=== PATIENT | female | born 1970 ===

== ENCOUNTER → 2017-10-24 | Outpatient (CLI) | payer OTHER | END | disposition home or self-care (01) | LOC: CFH 09:53 | PROVIDERS: ATTEND Surgery | DX: Z01.818 Encounter for other preprocedural examination (principal); N92.0 Excessive and frequent menstruation with regular cycle; E66.01 Morbid (severe) obesity due to excess calories | CPT/HCPCS: 74241; 76830 ==

== ENCOUNTER 2017-12-11 08:18 | Inpatient (IN) | payer OTHER ==
[~2017-12-11] VITALS: Ht 165.1 cm; Wt 108.0 kg
[~2017-12-11 08:18] MED LIST: GLIP5TAB10 PO; HYDR25TA6 PO; LEVO137T3 PO; SUGAMMADEX 200 MG/2 ML IVPush ONE
[2017-12-11] MEDS ORDERED: LACTATED RINGERS 1,000 ML IV SCH (14:30)
[2017-12-11] MEDS ORDERED: ONDANSETRON ODT 8 MG PO ONE (15:00)
[2017-12-11] MEDS ORDERED: SCOPOLAMINE PATCH, 1.5MG PATCH.TD72 TD ONE (15:00)
[2017-12-11] MEDS ORDERED: OxyconTIN ER 20 MG TAB.ER PO ONE (15:00)
[2017-12-11] MEDS ORDERED: ACETAMINOPHEN 500 MG TABLET PO ONE (15:00)
[2017-12-11] MEDS ORDERED: GABAPENTIN 300 MG CAPSULE PO ONE (15:00)
[2017-12-11] MEDS ORDERED: BUPIVACAINE/PF 0.5% ONE (15:46)
[2017-12-11] MEDS ORDERED: EPINEPHRINE 1 MG/ML, 1ML ONE (15:46)
[2017-12-11] MEDS ORDERED: FENTANYL PF 250 MCG/5ML ONE (15:50)
[2017-12-11] MEDS ORDERED: MIDAZOLAM 1 MG/ML, 2ML ONE (15:50)
[2017-12-11] MEDS ORDERED: PROPOFOL 10 MG/ML, 20ML ONE (15:51)
[2017-12-11] MEDS ORDERED: NEOSTIGMINE 1 MG/ML, 10ML ONE (15:52)
[2017-12-11] MEDS ORDERED: ROCURONIUM 10MG/ML,5ML ONE (15:52)
[2017-12-11] MEDS ORDERED: WATER-INJECTION,STERILE 10 ML IV ONE (15:53)
[2017-12-11] MEDS ORDERED: GLYCOPYRROLATE 0.4 MG/2 ML, 2ML ONE ×2 (15:53→17:41)
[2017-12-11] MEDS ORDERED: CEFAZOLIN 1,000 MG ONE ×2 (15:53)
[2017-12-11] MEDS ORDERED: DEXAMETHASONE 4 MG/ML, 1ML ONE ×2 (15:56)
[2017-12-11] MEDS ORDERED: FENTANYL PF 100 MCG/2ML IV PRN (16:30)
[2017-12-11] MEDS ORDERED: ONDANSETRON 2MG/ML, 2ML IVPush PRN (16:30)
[2017-12-11] MEDS ORDERED: MEPERIDINE/PF 25MG/0.5ML IVPush PRN (16:30)
[2017-12-11] MEDS ORDERED: OXYcodone 5 MG/5 ML ORAL.SOL UDC PO PRN (16:30)
[2017-12-11] MEDS ORDERED: HYDROmorphone 1 MG/ML, 1ML IV PRN ×2 (16:30→18:00)
[2017-12-11] MEDS ORDERED: hydrALAzine 20 MG/ML, 1ML IV PRN (16:30)
[2017-12-11] MEDS ORDERED: LABETALOL 5MG/ML, 20ML IV PRN (16:30)
[2017-12-11] MEDS ORDERED: PROMETHAZINE 12.5 MG SUPP PR PRN (16:30)
[2017-12-11] MEDS ORDERED: PROMETHAZINE 25 MG/ML, 1ML IV PRN (16:30)
[2017-12-11] MEDS ORDERED: morphine SULFATE 10 MG/ML, 1ML IV PRN (16:30)
[2017-12-11] MEDS ORDERED: BUPIVACAINE/PF-EPI 0.5% 1:200K INFIL ONE (17:26)
[2017-12-11] MEDS ORDERED: LORazepam 2 MG/ML, 1ML IV PRN (18:00)
[2017-12-11] MEDS ORDERED: ENALAPRILAT 1.25 MG/ML, 2ML IV PRN (18:00)
[2017-12-11] MEDS ORDERED: DIPHENHYDRAMINE 50 MG/ML, 1ML IV PRN (18:00)
[2017-12-11] MEDS ORDERED: DIPHENHYDRAMINE 25 MG CAPSULE PO PRN (18:00)
[2017-12-11] MEDS ORDERED: TEMAZEPAM 15 MG CAPSULE PO PRN (18:00)
[2017-12-11] MEDS ORDERED: ONDANSETRON 2MG/ML, 2ML IVPush SCH (18:00)
[2017-12-11] MEDS ORDERED: PROMETHAZINE 25 MG SUPP PR PRN (18:00)
[2017-12-11] MEDS ORDERED: hydrALAzine 20 MG/ML, 1ML ONE (18:17)
[2017-12-11] MEDS ORDERED: FENTANYL PF 100 MCG/2ML ONE (18:17)
[2017-12-11 20:00] VITALS: BP 134/81
[2017-12-11] MEDS ORDERED: ONDANSETRON ODT 4 MG PO PRN (21:30)
[2017-12-11] MEDS: POTASSIUM CHLORIDE 20 MEQ in LACTATED RINGERS 1,000 ML IV SCH (21:55)
[2017-12-11] MEDS: INSULIN REGULAR 100 UNITS/ML, 3ML VIAL SQ-INSULIN SCH (22:12)
[2017-12-12 00:25] VITALS: BP 113/66
[2017-12-12] MEDS: ONDANSETRON ODT 4 MG PO SCH ×4 (03:51→21:30)
[2017-12-12] MEDS: POTASSIUM CHLORIDE 20 MEQ in LACTATED RINGERS 1,000 ML IV SCH ×3 (03:51→18:10)
[2017-12-12 04:16] VITALS: BP 126/66
[2017-12-12] MEDS: HYDROcodone/APAP 7.5-325MG/15ML UDC PO PRN ×3 (06:07→21:31)
[2017-12-12 07:29] VITALS: BP 107/67
[2017-12-12] MEDS: INSULIN REGULAR 100 UNITS/ML, 3ML VIAL SQ-INSULIN SCH ×4 (07:55→21:39)
[2017-12-12] MEDS: ENOXAPARIN 40 MG/0.4 ML SQ SCH ×2 (07:56→21:31)
[2017-12-12] MEDS ORDERED: HYDROCHLOROTHIAZIDE 25 MG TABLET PO SCH (09:00)
[2017-12-12] MEDS ORDERED: LEVOTHYROXINE 137 MCG TABLET PO SCH (09:00)
[2017-12-12] MEDS ORDERED: FAMOTIDINE 20 MG/2 ML IVPush SCH (09:00)
[2017-12-12 09:18] LABS: BASOPHILS # (AUTO) 0.01 x10^3/uL (0-0.1); BASOPHILS % (AUTO) 0 % (0-1); EOSINOPHILS # (AUTO) 0.05 x10^3/uL (0-0.4); EOSINOPHILS % (AUTO) 1 % (1-7); LYMPHOCYTES # (AUTO) 1.85 x10^3/uL (1-3.4); LYMPHOCYTES % (AUTO) 21 % (22-44); MD NO; MEAN CORPUSCULAR HEMOGLOBIN 26.6 pg (27.0-34.8); MEAN CORPUSCULAR HGB CONC 32.7 g/dL (32.4-35.8); MEAN CORPUSCULAR VOLUME 81.4 fL (80-100); MEAN PLATELET VOLUME 7.5 fL (7.4-10.4); MONOCYTES # (AUTO) 0.67 x10^3/uL (0.2-0.8); MONOCYTES % (AUTO) 8 % (2-9); NEUTROPHILS # (AUTO) 6.45 x10^3/uL (1.8-6.8); NEUTROPHILS % (AUTO) 71 % (42-75); PLATELET COUNT 279 x10^3/uL (130-400); RED BLOOD COUNT 4.52 x10^6/uL (3.82-5.3); RED CELL DISTRIBUTION WIDTH 17.6 % (9.6-15.2)
[2017-12-12 09:29] LABS: ALBUMIN 2.8 g/dL (3.4-5.0); ANION GAP 7 mmol/L (5-15); CALCIUM 7.9 mg/dL (8.5-10.1); CHLORIDE 100 mmol/L (98-107)
[2017-12-12 09:32] LABS: ALANINE AMINOTRANSFERASE 41 U/L (12-78); ALKALINE PHOSPHATASE 67 U/L (45-117); BILIRUBIN,TOTAL 0.5 mg/dL (0.2-1.0); CREATININE 0.68 mg/dL (0.55-1.02)
[2017-12-12 14:27] VITALS: BP 116/68
[2017-12-12] MEDS ORDERED: TAMSULOSIN 0.4 MG CAP.ER.24H ONE (15:23)
[2017-12-12] MEDS ORDERED: TAMSULOSIN 0.4 MG CAP.ER.24H PO ONE (15:30)
[2017-12-12 19:12] VITALS: BP 111/71
[2017-12-13] MEDS ORDERED: TAMSULOSIN 0.4 MG CAP.ER.24H PO ONE (09:00)
== END 2017-12-12 22:45 | disposition home or self-care (01) | DRG 621 ==
LOC: ORIP 14:13 → 4NOR 20:03
PROVIDERS: ADMIT Surgery; ATTEND Surgery
PROC: 0FB24ZX Excision of Left Lobe Liver, Percutaneous Endoscopic Approach, Diagnostic (ICD-10-PCS; 2017-12-11)
PROC: 0DB64Z3 Excision of Stomach, Percutaneous Endoscopic Approach, Vertical (ICD-10-PCS; principal; 2017-12-11 15:30)
DX: E66.01 Morbid (severe) obesity due to excess calories (principal); K76.0 Fatty (change of) liver, not elsewhere classified; Z79.899 Other long term (current) drug therapy
CPT/HCPCS: 36415; 80053; 82962; 85025; 88307; 88313; 88342; J0171; J0690; J1100; J1650; J1815; J2250; J2270; J2704; J2710; J3010; J3480; J3490; Q0162; C1760; G0461; J0360; J7120; S0028

== ENCOUNTER → 2018-04-18 | Outpatient (CLI) | payer OTHER ==
[~2018-04-18] MED LIST changes: -SUGAMMADEX 200 MG/2 ML IVPush ONE
[2018-04-18 12:18] LABS: BASOPHILS # (AUTO) 0.03 x10^3/uL (0-0.1); BASOPHILS % (AUTO) 0 % (0-1); EOSINOPHILS # (AUTO) 0.15 x10^3/uL (0-0.4); EOSINOPHILS % (AUTO) 2 % (1-7); LYMPHOCYTES # (AUTO) 3.17 x10^3/uL (1-3.4); LYMPHOCYTES % (AUTO) 42 % (22-44); MD NO; MEAN CORPUSCULAR HEMOGLOBIN 30.2 pg (27.0-34.8); MEAN CORPUSCULAR HGB CONC 34.1 g/dL (32.4-35.8); MEAN CORPUSCULAR VOLUME 88.4 fL (80-100); MEAN PLATELET VOLUME 7.4 fL (7.4-10.4); MONOCYTES # (AUTO) 0.57 x10^3/uL (0.2-0.8); MONOCYTES % (AUTO) 8 % (2-9); NEUTROPHILS # (AUTO) 3.65 x10^3/uL (1.8-6.8); NEUTROPHILS % (AUTO) 48 % (42-75); PLATELET COUNT 325 x10^3/uL (130-400); RED BLOOD COUNT 4.38 x10^6/uL (3.82-5.3); RED CELL DISTRIBUTION WIDTH 14.9 % (9.6-15.2)
[2018-04-18 12:29] LABS: CHLORIDE 108 mmol/L (98-107)
[2018-04-18 13:03] LABS: % IRON SATURATION 9 % (20-55); ALANINE AMINOTRANSFERASE 47 U/L (12-78); ALBUMIN 3.5 g/dL (3.4-5.0); ALKALINE PHOSPHATASE 83 U/L (45-117); ANION GAP 7 mmol/L (5-15); BILIRUBIN,TOTAL 0.5 mg/dL (0.2-1.0); CALCIUM 8.5 mg/dL (8.5-10.1); CHOL/HDL RATIO 2.8; CHOLESTEROL, TOTAL 168 mg/dL (140-239); CREATININE 0.67 mg/dL (0.55-1.02); HDL CHOL % 36 % (28-40); HDL CHOLESTEROL (DIRECT) 61 mg/dL (40-60); IRON LEVEL 46 mcg/dL (50-170); LDL CHOLESTEROL,CALCULATED 82 mg/dL (54-169); LDL/HDL RATIO 1.3 (0.5-3.0); PREALBUMIN 18.8 mg/dL (20.0-40.0); TOTAL IRON BINDING CAPACITY 489 mcg/dL (250-450); TOTAL PROTEIN 8.3 g/dL (6.4-8.2); TRANSFERRIN 398 mg/dL (200-360); TRIGLYCERIDES 124 mg/dL (50-200); VLDL CHOLESTEROL 25 mg/dL (0-25)
[2018-04-18 14:13] LABS: HEMOGLOBIN A1C 7.2 % (4.2-6.3)
== END | disposition home or self-care (01) ==
LOC: LAB 11:42
PROVIDERS: ATTEND Surgery
DX: E11.9 Type 2 diabetes mellitus without complications (principal); E66.01 Morbid (severe) obesity due to excess calories; K76.0 Fatty (change of) liver, not elsewhere classified; M19.90 Unspecified osteoarthritis, unspecified site; E07.9 Disorder of thyroid, unspecified; K74.60 Unspecified cirrhosis of liver; Z72.4 Inappropriate diet and eating habits; Z98.84 Bariatric surgery status
CPT/HCPCS: 36415; 80053; 80061; 82306; 82607; 83036; 83540; 83550; 84134; 84207; 84252; 84425; 84443; 84466; 85025

== ENCOUNTER → 2018-06-22 | Outpatient (CLI) | payer OTHER | END | disposition home or self-care (01) | LOC: CFH 14:53 | PROVIDERS: ATTEND Physician Assistant | DX: M25.512 Pain in left shoulder (principal) ==

== ENCOUNTER 2019-02-21 10:27 | Outpatient (CLI) | payer OTHER ==
[~2019-02-21 10:27] MED LIST changes: +LISI-167 PO; +SAXAGLIPTIN PO; +TRAM50TA2 PO
[2019-02-21 10:53] LABS: BASOPHILS # (AUTO) 0.05 x10^3/uL (0-0.1); BASOPHILS % (AUTO) 1 % (0-1); EOSINOPHILS # (AUTO) 0.17 x10^3/uL (0-0.4); EOSINOPHILS % (AUTO) 2 % (1-7); LYMPHOCYTES # (AUTO) 2.38 x10^3/uL (1-3.4); LYMPHOCYTES % (AUTO) 32 % (22-44); MD NO; MEAN CORPUSCULAR HEMOGLOBIN 29.4 pg (27.0-34.8); MEAN CORPUSCULAR HGB CONC 32.9 g/dL (32.4-35.8); MEAN CORPUSCULAR VOLUME 89.3 fL (80-100); MEAN PLATELET VOLUME 7.5 fL (7.4-10.4); MONOCYTES % (AUTO) 8 % (2-9); NEUTROPHILS # (AUTO) 4.16 x10^3/uL (1.8-6.8); NEUTROPHILS % (AUTO) 57 % (42-75); PLATELET COUNT 294 x10^3/uL (130-400); RED BLOOD COUNT 4.86 x10^6/uL (3.82-5.3); RED CELL DISTRIBUTION WIDTH 14.8 % (9.6-15.2)
[2019-02-21 11:06] LABS: ALBUMIN 3.5 g/dL (3.4-5.0); ANION GAP 7 mmol/L (5-15); CALCIUM 8.8 mg/dL (8.5-10.1); CHLORIDE 105 mmol/L (98-107); CHOLESTEROL, TOTAL 216 mg/dL (140-239); CREATININE 0.68 mg/dL (0.55-1.02)
[2019-02-21 11:33] LABS: % IRON SATURATION 14 % (20-55); ALANINE AMINOTRANSFERASE 26 U/L (12-78); ALKALINE PHOSPHATASE 89 U/L (45-117); BILIRUBIN,TOTAL 0.4 mg/dL (0.2-1.0); CHOL/HDL RATIO 2.5; HDL CHOL % 40 % (28-40); HDL CHOLESTEROL (DIRECT) 86 mg/dL (40-60); IRON LEVEL 70 mcg/dL (50-170); LDL CHOLESTEROL,CALCULATED 108 mg/dL (54-169); LDL/HDL RATIO 1.3 (0.5-3.0); PREALBUMIN 17.2 mg/dL (20.0-40.0); TOTAL IRON BINDING CAPACITY 501 mcg/dL (250-450); TOTAL PROTEIN 8.3 g/dL (6.4-8.2); TRANSFERRIN 384 mg/dL (200-360); TRIGLYCERIDES 110 mg/dL (50-200); VLDL CHOLESTEROL 22 mg/dL (0-25)
[2019-02-21 13:15] LABS: HEMOGLOBIN A1C 7.1 % (4.2-6.3)
== END 2019-02-21 23:59 | disposition home or self-care (01) ==
LOC: LAB 10:27
PROVIDERS: ATTEND Surgery
DX: E11.9 Type 2 diabetes mellitus without complications (principal); K76.0 Fatty (change of) liver, not elsewhere classified; M19.90 Unspecified osteoarthritis, unspecified site; E07.9 Disorder of thyroid, unspecified; K74.60 Unspecified cirrhosis of liver; E66.9 Obesity, unspecified; Z72.4 Inappropriate diet and eating habits; Z98.84 Bariatric surgery status
CPT/HCPCS: 36415; 80053; 80061; 82306; 82607; 82746; 83036; 83540; 83550; 84134; 84207; 84252; 84425; 84466; 85025

== ENCOUNTER 2019-09-23 12:27 | Outpatient (CLI) | payer OTHER | END 2019-09-23 23:59 | disposition home or self-care (01) | LOC: CFH 12:27 | PROVIDERS: ATTEND Physician Assistant | DX: Z01.811 Encounter for preprocedural respiratory examination (principal); M75.02 Adhesive capsulitis of left shoulder | CPT/HCPCS: 71046 ==

== ENCOUNTER → 2019-10-01 | Outpatient (CLI) | payer OTHER | END | disposition home or self-care (01) | LOC: STAR 12:15 | PROVIDERS: ATTEND Physician Assistant | DX: Z01.818 Encounter for other preprocedural examination (principal); M75.02 Adhesive capsulitis of left shoulder | CPT/HCPCS: 93005 ==

== ENCOUNTER → 2019-10-17 | Outpatient (CLI) | payer OTHER ==
[~2019-10-17] MED LIST changes: +ALOG25TA2 PO; +BIOT25005 PO; +ERGO500017 PO
[2019-10-17 09:12] LABS: ALBUMIN 3.3 g/dL (3.4-5.0); ANION GAP 7 mmol/L (5-15); CALCIUM 8.5 mg/dL (8.5-10.1); CHLORIDE 106 mmol/L (98-107)
[2019-10-17 09:15] LABS: ALANINE AMINOTRANSFERASE 26 U/L (12-78); ALKALINE PHOSPHATASE 83 U/L (45-117); BILIRUBIN,TOTAL 0.4 mg/dL (0.2-1.0); CREATININE 0.71 mg/dL (0.55-1.02)
== END | disposition home or self-care (01) ==
LOC: STAR 08:02
PROVIDERS: ATTEND Orthopaedic Surgery
DX: Z01.818 Encounter for other preprocedural examination (principal); M75.02 Adhesive capsulitis of left shoulder
CPT/HCPCS: 36415; 80053; 87081

== ENCOUNTER → 2020-03-17 | Outpatient (CLI) | payer OTHER ==
[2020-03-17 10:44] LABS: BASOPHILS # (AUTO) 0.03 x10^3/uL (0-0.1); BASOPHILS % (AUTO) 0 % (0-1); EOSINOPHILS # (AUTO) 0.17 x10^3/uL (0-0.4); EOSINOPHILS % (AUTO) 2 % (1-7); LYMPHOCYTES # (AUTO) 2.42 x10^3/uL (1-3.4); LYMPHOCYTES % (AUTO) 35 % (22-44); MD NO; MEAN CORPUSCULAR HGB CONC 32.2 g/dL (32.4-35.8); MEAN CORPUSCULAR VOLUME 89.9 fL (80-100); MEAN PLATELET VOLUME 7.4 fL (7.4-10.4); MONOCYTES # (AUTO) 0.59 x10^3/uL (0.2-0.8); MONOCYTES % (AUTO) 9 % (2-9); NEUTROPHILS # (AUTO) 3.75 x10^3/uL (1.8-6.8); NEUTROPHILS % (AUTO) 54 % (42-75); PLATELET COUNT 313 x10^3/uL (130-400); RED BLOOD COUNT 4.79 x10^6/uL (3.82-5.3); RED CELL DISTRIBUTION WIDTH 14.8 % (9.6-15.2)
[2020-03-17 10:52] LABS: ALBUMIN 3.6 g/dL (3.4-5.0); ANION GAP 7 mmol/L (5-15); CALCIUM 8.5 mg/dL (8.5-10.1); CHLORIDE 105 mmol/L (98-107)
[2020-03-17 11:00] LABS: ALANINE AMINOTRANSFERASE 30 U/L (12-78); ALKALINE PHOSPHATASE 83 U/L (45-117); BILIRUBIN,TOTAL 0.5 mg/dL (0.2-1.0); CHOL/HDL RATIO 2.8; CHOLESTEROL, TOTAL 196 mg/dL (140-239); CREATININE 0.86 mg/dL (0.55-1.02); FREE T4 (FREE THYROXINE) 1.08 ng/dL (0.76-1.46); HDL CHOL % 36 % (28-40); HDL CHOLESTEROL (DIRECT) 71 mg/dL (40-60); LDL CHOLESTEROL,CALCULATED 100 mg/dL (54-169); LDL/HDL RATIO 1.4 (0.5-3.0); TOTAL PROTEIN 8.6 g/dL (6.4-8.2); TRIGLYCERIDES 125 mg/dL (50-200); VLDL CHOLESTEROL 25 mg/dL (0-25)
== END | disposition home or self-care (01) ==
LOC: LAB 10:20
PROVIDERS: ATTEND Physician Assistant
DX: E11.9 Type 2 diabetes mellitus without complications (principal); E03.9 Hypothyroidism, unspecified
CPT/HCPCS: 36415; 80053; 80061; 82043; 82306; 84439; 84443; 85025

== ENCOUNTER → 2020-07-08 | Outpatient (CLI) | payer OTHER ==
[2020-07-08 16:12] LABS: ALANINE AMINOTRANSFERASE 30 U/L (12-78); ALBUMIN 3.6 g/dL (3.4-5.0); ANION GAP 6 mmol/L (5-15); CALCIUM 8.9 mg/dL (8.5-10.1); CHLORIDE 101 mmol/L (98-107); CREATININE 0.81 mg/dL (0.55-1.02)
[2020-07-08 16:14] LABS: ALKALINE PHOSPHATASE 93 U/L (45-117); BILIRUBIN,TOTAL 0.4 mg/dL (0.2-1.0); TOTAL PROTEIN 8.5 g/dL (6.4-8.2)
== END | disposition home or self-care (01) ==
LOC: STAR 14:19
PROVIDERS: ATTEND Orthopaedic Surgery
DX: Z01.818 Encounter for other preprocedural examination (principal); M75.02 Adhesive capsulitis of left shoulder
CPT/HCPCS: 36415; 80053; 87081; 87147

== ENCOUNTER 2020-07-14 05:52 | Day surgery (SDC) | payer OTHER ==
[~2020-07-14] VITALS: Ht 165.1 cm; Wt 99.0 kg
[2020-07-14] MEDS ORDERED: CHLORHEXIDINE 15 ML UDC MM STA (06:03)
[2020-07-14 06:05] VITALS: BP 134/88
[2020-07-14] MEDS ORDERED: LIDOCAINE/PF 1%, 30ML ONE (06:18)
[2020-07-14] MEDS ORDERED: EPINEPHRINE 1 MG/ML, 1ML ONE (06:18)
[2020-07-14] MEDS ORDERED: BUPIVACAINE/PF 0.25% ONE ×2 (06:18→07:34)
[2020-07-14] MEDS ORDERED: LACTATED RINGERS 1,000 ML IV SCH (06:30)
[2020-07-14] MEDS ORDERED: FENTANYL PF 100 MCG/2ML ONE ×2 (06:34→09:02)
[2020-07-14] MEDS ORDERED: MIDAZOLAM 1 MG/ML, 2ML ONE (06:34)
[2020-07-14] MEDS ORDERED: GLYCOPYRROLATE 0.2MG/1ML, 5ML ONE (07:34)
[2020-07-14] MEDS ORDERED: DEXAMETHASONE 4 MG/ML, 1ML ONE (07:34)
[2020-07-14] MEDS ORDERED: ONDANSETRON 2MG/ML, 2ML ONE ×2 (07:34→08:56)
[2020-07-14] MEDS ORDERED: NEOSTIGMINE 1 MG/ML, 10ML ONE (07:34)
[2020-07-14] MEDS ORDERED: SUCCINYLCHOLINE 20 MG/ML, 10ML ONE (07:34)
[2020-07-14] MEDS ORDERED: CEFAZOLIN 1,000 MG ONE (07:34)
[2020-07-14] MEDS ORDERED: PROPOFOL 10 MG/ML, 20ML ONE (07:34)
[2020-07-14] MEDS ORDERED: ROCURONIUM 10MG/ML,5ML ONE (07:34)
[2020-07-14] MEDS ORDERED: PROMETHAZINE 25 MG SUPP PR PRN (08:00)
[2020-07-14] MEDS ORDERED: METHOCARBAMOL 1,000 MG in DEXTROSE 5% 100 ML IV PRN (08:00)
[2020-07-14] MEDS ORDERED: ACETAMINOPHEN 325 MG TABLET PO PRN (08:00)
[2020-07-14] MEDS ORDERED: OXYcodone 5 MG/5 ML ORAL.SOL UDC PO PRN (08:00)
[2020-07-14] MEDS ORDERED: PROMETHAZINE 25 MG/ML, 1ML IVPush PRN (08:00)
[2020-07-14] MEDS ORDERED: HYDROmorphone 1 MG/ML, 1ML INJ IVPush PRN (08:00)
[2020-07-14] MEDS ORDERED: ONDANSETRON 2MG/ML, 2ML IVPush PRN (08:00)
[2020-07-14] MEDS ORDERED: LORazepam 2 MG/ML, 1ML IVPush PRN (08:00)
[2020-07-14] MEDS ORDERED: SUGAMMADEX 200 MG/2 ML IVPush ONE (08:32)
[2020-07-14] MEDS: FENTANYL PF 100 MCG/2ML IV PRN ×2 (09:03→09:14)
[2020-07-14] MEDS ORDERED: OXYcodone 5 MG/5 ML ORAL.SOL UDC ONE (09:20)
[2020-07-14] MEDS ORDERED: ACETAMINOPHEN 650 MG/20.3 ML UDC ONE (09:20)
== END 2020-07-14 11:30 | disposition home or self-care (01) ==
LOC: OUT 05:52
PROVIDERS: ATTEND Orthopaedic Surgery
DX: S46.012A Strain of muscle(s) and tendon(s) of the rotator cuff of left shoulder, initial encounter (principal); Z20.828 Contact with and (suspected) exposure to other viral communicable diseases; M75.02 Adhesive capsulitis of left shoulder; M75.42 Impingement syndrome of left shoulder; G89.18 Other acute postprocedural pain; E11.9 Type 2 diabetes mellitus without complications; Z79.1 Long term (current) use of non-steroidal anti-inflammatories (NSAID); Z79.84 Long term (current) use of oral hypoglycemic drugs; Z79.890 Hormone replacement therapy; Z79.891 Long term (current) use of opiate analgesic; Z79.899 Other long term (current) drug therapy; X58.XXXA Exposure to other specified factors, initial encounter; Y93.89 Activity, other specified; Y92.89 Other specified places as the place of occurrence of the external cause; Y99.8 Other external cause status
CPT/HCPCS: 29826; 29827; 64415; 82962; 87635; C1713; J0171; J0690; J1100; J2250; J2405; J2704; J3010; J7120; J2710; J0330

== ENCOUNTER → 2021-03-16 | Outpatient (CLI) | payer OTHER ==
[2021-03-16 12:05] LABS: BASOPHILS % (AUTO) 1 % (0-1); EOSINOPHILS % (AUTO) 2 % (1-7); LYMPHOCYTES % (AUTO) 41 % (22-44); MEAN CORPUSCULAR HEMOGLOBIN 29.8 pg (27.0-34.8); MEAN CORPUSCULAR HGB CONC 33.9 g/dL (32.4-35.8); MEAN PLATELET VOLUME 7.3 fL (7.4-10.4); MICROSCOPIC INDICATED; MONOCYTES % (AUTO) 8 % (2-9); NEUTROPHILS % (AUTO) 48 % (42-75); PLATELET COUNT 271 x10^3/uL (130-400); RED BLOOD COUNT 4.62 x10^6/uL (3.82-5.3); RED CELL DISTRIBUTION WIDTH 14.3 % (9.6-15.2)
[2021-03-16 12:15] LABS: ALANINE AMINOTRANSFERASE 26 U/L (12-78); ALBUMIN 3.6 g/dL (3.4-5.0); ANION GAP 5 mmol/L (5-15); CALCIUM 8.7 mg/dL (8.5-10.1); CHLORIDE 106 mmol/L (98-107); CHOLESTEROL, TOTAL 181 mg/dL (140-239); CREATININE 0.55 mg/dL (0.55-1.02)
[2021-03-16 12:24] LABS: ALKALINE PHOSPHATASE 84 U/L (45-117); BILIRUBIN,TOTAL 0.4 mg/dL (0.2-1.0); CHOL/HDL RATIO 2.8; FREE T4 (FREE THYROXINE) 1.33 ng/dL (0.76-1.46); HDL CHOL % 36 % (28-40); HDL CHOLESTEROL (DIRECT) 65 mg/dL (40-60); LDL CHOLESTEROL,CALCULATED 90 mg/dL (54-169); LDL/HDL RATIO 1.4 (0.5-3.0); TOTAL PROTEIN 8.4 g/dL (6.4-8.2); TRIGLYCERIDES 132 mg/dL (50-200); VLDL CHOLESTEROL 26 mg/dL (0-25)
== END | disposition home or self-care (01) ==
LOC: LAB 11:38
PROVIDERS: ATTEND Physician Assistant
DX: E11.9 Type 2 diabetes mellitus without complications (principal); E03.9 Hypothyroidism, unspecified
CPT/HCPCS: 36415; 80053; 80061; 81001; 82043; 82306; 83036; 84439; 84443; 84480; 85025